=== PATIENT | male | born 2000 | race Caucasian/White ===

== ENCOUNTER 2020-05-09 09:11 | Outpatient (REF) | payer MEDICAID, SELFPAY | END 2020-05-09 09:12 | disposition home or self-care (01) | LOC: HO.LAB 09:11 | PROVIDERS: Visit Provider Internal Medicine | DX: Z20.828 Contact with and (suspected) exposure to other viral communicable diseases (principal) | CPT/HCPCS: C9803; U0003 ==

== ENCOUNTER 2020-08-29 09:19 | Outpatient (REF) | payer MEDICAID, SELFPAY ==
[2020-08-29 09:57] LABS: COVID-19 Test Negative (Negative); IDNOW Serial# 55D5AD1C
== END 2020-08-29 09:20 | disposition home or self-care (01) ==
LOC: HO.LAB 09:19
PROVIDERS: Visit Provider Internal Medicine
DX: Z20.822 Contact with and (suspected) exposure to COVID-19 (principal)
CPT/HCPCS: 36415; 87635; C9803